=== PATIENT | male | born 1955 | race Hispanic/Latino ===

== ENCOUNTER 2022-11-21 08:40 | Emergency (ER) | payer OTHER ==
[~2022-11-21] VITALS: Ht 180.3 cm; Wt 152.0 kg
[2022-11-21] MEDS ORDERED: SOLU-MEDROL 125MG VIAL IVP ONE (09:30)
[2022-11-21 09:35] LABS: BASOPHILS # (AUTO) 0.04 K/uL (0.00-0.20); BASOPHILS % (AUTO) 0.3 % (0.0-5.0); EOSINOPHILS # (AUTO) 0.03 K/uL (0.00-0.70); EOSINOPHILS % (AUTO) 0.2 % (0.0-8.0); HEMATOCRIT 46.9 % (42-54); IMMATURE GRANULOCYTE ABSOLUTE 0.07 K/uL (0-1); LYMPHOCYTES # (AUTO) 1.1 K/uL (1.0-4.8); LYMPHOCYTES % (AUTO) 7.6 % (21.0-51.0); MEAN CORPUSCULAR HEMOGLOBIN 31.2 pg (27.0-33.0); MEAN CORPUSCULAR HGB CONC 33.5 g/dL (32.0-36.0); MEAN CORPUSCULAR VOLUME 93.1 fL (79-99); MONOCYTES # (AUTO) 0.6 K/uL (0.1-1.0); NEUTROPHILS % (AUTO) 87.4 % (40.0-77.0); PLATELET COUNT (AUTO) 289 K/uL (130-400); RED BLOOD CELL COUNT(AUTO) 5.04 MIL/uL (4.50-6.20); RED CELL DISTRIBUTION WIDTH 12.6 % (11.0-15.5); WHITE BLOOD COUNT (AUTO) 14.8 K/uL (4.8-10.8)
[2022-11-21 09:46] VITALS: BP 144/81; PULSE 88; RESP 18; O2SAT 96
[2022-11-21 10:12] LABS: ALBUMIN 2.6 g/dL (3.5-5.0); BILIRUBIN,TOTAL 1.2 mg/dL (0.2-1.0); CREATININE 1.7 mg/dL (0.5-1.5); POTASSIUM 3.9 mmol/L (3.5-5.1); TOTAL PROTEIN, SERUM 9.7 g/dL (6.0-8.3)
[2022-11-21] MEDS ORDERED: FAMOTIDINE 20MG VIAL IV ONE (11:00)
[2022-11-21] MEDS ORDERED: METH4TAB3 PO (11:12)
[2022-11-21] MEDS ORDERED: FAMO-136 PO (11:12)
== END 2022-11-21 15:56 | disposition home or self-care (01) ==
LOC: EDH 08:40
DX: M10.9 Gout, unspecified (principal); M76.71 Peroneal tendinitis, right leg; M79.674 Pain in right toe(s); M25.531 Pain in right wrist; Z98.890 Other specified postprocedural states
CPT/HCPCS: 99285; 96374; 96375; 84484; 80053; 85025; 36415; 73630; 73110; 93005; J3490; J2930